=== PATIENT | female | born 1950 | race Caucasian/White ===

== ENCOUNTER 2018-06-05 15:20 | Emergency (ER) | payer MEDICARE, OTHER ==
[~2018-06-05] VITALS: Ht 180.3 cm; Wt 102.3 kg
[~2018-06-05 15:20] MED LIST: BACTRIM DS1 TAB PO; NAPROSYN500 MG PO; PREMPRO PO; PROZAC20 M1 PO
[2018-06-05] MEDS ORDERED: CELEBREX200 MG PO (16:35)
[2018-06-05] MEDS ORDERED: VOLTAREN1%GEL TOP (18:28)
[2018-06-05] MEDS ORDERED: MOTRIN400 MG PO (18:28)
[2018-06-05 18:40] VITALS: BP 122/78
== END 2018-06-05 18:40 | disposition home or self-care (01) ==
LOC: ED 15:20
DX: S80.01XA Contusion of right knee, initial encounter (principal); S90.01XA Contusion of right ankle, initial encounter; M19.90 Unspecified osteoarthritis, unspecified site; W01.0XXA Fall on same level from slipping, tripping and stumbling without subsequent striking against object, initial encounter; Y93.11 Activity, swimming; Y92.34 Swimming pool (public) as the place of occurrence of the external cause

== ENCOUNTER → 2018-08-02 | Outpatient (REF) | payer MEDICARE, OTHER ==
[~2018-08-02] MED LIST changes: +CELEBREX200 MG PO; +MOTRIN400 MG PO; +VOLTAREN1%GEL TOP
== END | disposition home or self-care (01) ==
LOC: CT 10:31
PROVIDERS: ATTEND Nurse Practitioner Family
DX: R91.1 Solitary pulmonary nodule (principal)

== ENCOUNTER 2020-08-11 09:53 | Emergency (ER) | payer MEDICARE ==
[~2020-08-11] VITALS: Ht 180.3 cm; Wt 104.5 kg
[2020-08-11 10:45] LABS: URINE BILIRUBIN - DIPSTICK NEGATIVE (NEGATIVE); URINE BLOOD DIPSTICK LARGE (NEGATIVE); URINE CLARITY CLOUDY; URINE COLOR YELLOW; URINE GLUCOSE - DIPSTICK NEGATIVE (NEGATIVE); URINE KETONE NEGATIVE (NEGATIVE); URINE LEUK ESTERASE MODERATE (Negative); URINE NITRITE - DIPSTICK POSITIVE (Negative); URINE PROTEIN - DIPSTICK >=300 mg/dL (NEG-TRACE); URINE UROBILINOGEN - DIPSTICK 0.2 E.U./dL (0.2)
[2020-08-11 10:54] LABS: URINE BACTERIA FEW hpf; URINE SQUAMOUS EPITHELIAL CELL FEW EPI/hpf (0-FEW); URINE WBC 20-50 WBC/hpf (0-5); URINE YEAST FEW hpf
[2020-08-11 11:23] LABS: ANION GAP 12 (6-22 (CALC)); BUN 14 mg/dL (8-23); BUN/CREATININE RATIO 19 (12-20 (CALC)); CARBON DIOXIDE 26 mmol/l (22-30); CHLORIDE 93 mmol/l (95-108); CREATININE 0.8 mg/dL (0.5-1.0); GFR > 60 ML/MIN (>=60 (CALC)); GFR FOR AFR.AMER. > 60 ML/MIN (>=60 (CALC)); POTASSIUM 4.6 mmol/l (3.5-5.1)
[2020-08-11 11:24] LABS: SODIUM 126 mmol/l (137-146)
[2020-08-11] MEDS ORDERED: KEFLEX500 MG PO (11:48)
[2020-08-11] MEDS ORDERED: PYRIDIUM200 MG PO (11:49)
[2020-08-11 12:30] VITALS: BP 128/74
[2020-08-11] MEDS ORDERED: ONDANSETRON4 MG PO (12:44)
== END 2020-08-11 12:30 | disposition home or self-care (01) ==
LOC: ED 09:53
PROVIDERS: Emergency Medicine
DX: N39.0 Urinary tract infection, site not specified (principal); E87.1 Hypo-osmolality and hyponatremia; M19.90 Unspecified osteoarthritis, unspecified site

== ENCOUNTER 2022-07-12 09:49 | Emergency (ER) | payer MEDICARE ==
[2022-07-12] VITALS (8 sets, daily range): BP systolic 103–132; BP diastolic 62–83
[~2022-07-12] VITALS: Ht 180.3 cm; Wt 101.2 kg
[~2022-07-12 09:49] MED LIST changes: +KEFLEX500 MG PO; +ONDANSETRON4 MG PO; +PYRIDIUM200 MG PO
[2022-07-12 10:30] LABS: URINE BILIRUBIN - DIPSTICK NEGATIVE (NEGATIVE); URINE BLOOD DIPSTICK SMALL (NEGATIVE); URINE COLOR YELLOW; URINE GLUCOSE - DIPSTICK NEGATIVE (NEGATIVE); URINE KETONE NEGATIVE (NEGATIVE); URINE PH 5.5 (4.5-8.0); URINE PROTEIN - DIPSTICK TRACE mg/dL (NEG-TRACE); URINE UROBILINOGEN - DIPSTICK 0.2 E.U./dL (0.2)
[2022-07-12 10:40] LABS: URINE LEUK ESTERASE MODERATE (NEGATIVE); URINE NITRITE - DIPSTICK POSITIVE (Negative)
[2022-07-12 10:42] LABS: URINE BACTERIA MANY hpf; URINE EPITHELIAL CELLS MODERATE EPI/hpf (0-FEW); URINE WBC 20-50 WBC/hpf (0-5)
[2022-07-12 10:59] LABS: BASO% 0.1 % (0-3); EOS% 0.6 % (0-8); HEMATOCRIT 37.5 % (37.0-47.0); HEMOGLOBIN 12.9 g/dl (12.0-16.0); IMMATURE GRANULOCYTES 0.4 % (0.0-5.0); LYMPH% 7.4 % (15-41); MEAN CELL VOLUME 90.4 fL CALC (80.0-100.0); MEAN CORPUSCULAR HGB 31.1 pG CALC (26.0-32.0); MEAN CORPUSCULAR HGB CONC 34.4 g/dL CAL (32.0-36.0); MONO% 8.7 % (2-13); NEUT# 6.59 thou/uL (2.00-7.15); NEUT% 82.8 % (42-76); RED BLOOD COUNT 4.15 mill/uL (4.20-5.60); RED CELL DISTRI WIDTH 12.4 % (11.5-15.5)
[2022-07-12 11:01] LABS: ALBUMIN 3.9 g/dL (3.2-5.0); ANION GAP 11 (6-22 (CALC)); BILIRUBIN, TOTAL 0.8 mg/dL (0.02-1.3); BUN 8 mg/dL (8-23); BUN/CREATININE RATIO 11 (12-20 (CALC)); CARBON DIOXIDE 27 mmol/l (22-30); CHLORIDE 92 mmol/l (95-108); CREATININE 0.8 mg/dL (0.5-1.0); GFR FOR AFR.AMER. > 60 ML/MIN (>=60 (CALC)); GFR OTHER RACES > 60 ML/MIN (>=60 (CALC)); SODIUM 125 mmol/l (137-146); TOTAL PROTEIN 7.1 g/dL (6.3-8.2)
[2022-07-12 11:03] LABS: ALKALINE PHOSPHATASE 121 u/l (38-126); SGOT/AST 38 u/l (9-36)
[2022-07-12] MEDS ORDERED: NITROFURANTN100 M2 PO (11:27)
== END 2022-07-12 12:50 | disposition home or self-care (01) ==
LOC: ED 09:49
PROVIDERS: Family Medicine
DX: N39.0 Urinary tract infection, site not specified (principal); B96.20 Unspecified Escherichia coli [E. coli] as the cause of diseases classified elsewhere; E87.1 Hypo-osmolality and hyponatremia; Z20.822 Contact with and (suspected) exposure to COVID-19